=== PATIENT | female | born 1990 | race Caucasian/White ===

== ENCOUNTER 2019-05-14 14:00 | Inpatient (IN) | payer OTHER ==
[~2019-05-14] VITALS: Ht 165.1 cm; Wt 69.4 kg
[2019-06-04] MEDS ORDERED: PRENATAL CAPLE1 EAC1 PO (16:46)
== END 2019-06-07 13:27 | DRG 807 ==
LOC: O/R 14:00 → OB/GYN 06-04 14:00 → LDR 06-04 15:49 → OB/GYN 06-05 14:40
PROVIDERS: ADMIT Obstetrics & Gynecology Maternal & Fetal Medicine
PROC: 4A1HXCZ Monitoring of Products of Conception, Cardiac Rate, External Approach (ICD-10-PCS; 2019-06-04)
PROC: 10E0XZZ Delivery of Products of Conception, External Approach (ICD-10-PCS; principal; 2019-06-05)
PROC: 3E033VJ Introduction of Other Hormone into Peripheral Vein, Percutaneous Approach (ICD-10-PCS; 2019-06-05)
PROC: 0UQGXZZ Repair Vagina, External Approach (ICD-10-PCS; 2019-06-05)
DX: O71.4 Obstetric high vaginal laceration alone (principal); Z37.0 Single live birth; Z3A.40 40 weeks gestation of pregnancy

== ENCOUNTER 2019-05-30 13:26 | Outpatient (CLI) | payer OTHER | END 2019-05-30 14:25 | disposition home or self-care (01) | LOC: NST 13:26 | DX: Z34.83 Encounter for supervision of other normal pregnancy, third trimester (principal) ==

== ENCOUNTER 2019-06-03 09:01 | Outpatient (CLI) | payer OTHER ==
[2019-06-04] MEDS ORDERED: PRENATAL CAPLE1 EAC1 PO (16:46)
== END 2019-06-03 09:50 | disposition home or self-care (01) ==
LOC: NST 09:01
DX: Z34.83 Encounter for supervision of other normal pregnancy, third trimester (principal)

== ENCOUNTER 2022-06-10 14:30 | Inpatient (IN) | payer OTHER ==
[~2022-06-10] VITALS: Ht 162.6 cm; Wt 68.0 kg
[~2022-06-10 14:30] MED LIST: PRENATAL CAPLE1 EAC1 PO
== END 2022-07-01 12:34 | disposition home or self-care (01) | DRG 807 ==
LOC: OB/GYN 06-25 14:30 → LDR 06-29 05:47 → OB/GYN 06-29 05:47
PROVIDERS: ADMIT Obstetrics & Gynecology; ATTEND Obstetrics & Gynecology
PROC: 10E0XZZ Delivery of Products of Conception, External Approach (ICD-10-PCS; principal; 2022-06-29)
PROC: 0HQ9XZZ Repair Perineum Skin, External Approach (ICD-10-PCS; 2022-06-29)
PROC: 0UQG7ZZ Repair Vagina, Via Natural or Artificial Opening (ICD-10-PCS; 2022-06-29)
PROC: 4A1HXCZ Monitoring of Products of Conception, Cardiac Rate, External Approach (ICD-10-PCS; 2022-06-29)
DX: O70.0 First degree perineal laceration during delivery (principal); Z37.0 Single live birth; Z3A.40 40 weeks gestation of pregnancy; Z20.822 Contact with and (suspected) exposure to COVID-19

== ENCOUNTER 2022-06-21 10:27 | Outpatient (CLI) | payer OTHER | END 2022-06-21 11:13 | disposition home or self-care (01) | LOC: NST 10:27 | PROVIDERS: ATTEND Obstetrics & Gynecology Maternal & Fetal Medicine | DX: Z34.83 Encounter for supervision of other normal pregnancy, third trimester (principal) ==

== ENCOUNTER 2022-06-24 09:56 | Outpatient (CLI) | payer OTHER | END 2022-06-24 10:45 | disposition home or self-care (01) | LOC: NST 09:56 | PROVIDERS: ATTEND Obstetrics & Gynecology Gynecology | DX: Z34.83 Encounter for supervision of other normal pregnancy, third trimester (principal) ==

== ENCOUNTER 2025-06-26 13:15 | Inpatient (IN) | payer OTHER ==
[~2025-06-26] VITALS: Ht 165.1 cm; Wt 68.5 kg
[2025-07-04] VITALS (8 sets, daily range): BP systolic 103–136; BP diastolic 62–77; O2SAT 100
[2025-07-04] MEDS ORDERED: AMPICILLIN SODIUM 2,000 MG VIAL ONE (01:58)
[2025-07-04] MEDS ORDERED: MORPHINE SULFATE 4 MG/ML CARTRIDGE IV PRN (02:15)
[2025-07-04] MEDS ORDERED: RINGERS SOLUTION,LACTATED 1,000 ML IV SCH (02:15)
[2025-07-04] MEDS ORDERED: AMPICILLIN SODIUM 2,000 MG VIAL IV ONE (02:15)
[2025-07-04 03:15] LABS: BASO % 0.8 % (0.1-1.2); EOS # 0.04 (0.04-0.54); EOS % 0.5 % (0.7-7.0); LYMPH # 1.78 (1.18-3.74); LYMPH % 22.7 % (19.3-53.1); MEAN PLATELET VOLUME 10.70 fl (9.4-12.4); MONO # 0.45 (0.24-0.82); MONO % 5.7 % (4.7-12.5); NEUT # 5.49 (1.56-6.13); NEUT % 69.9 % (34.0-71.1); RED CELL DISTRIBUTION WIDTH 13.5 % (11.6-14.4)
[2025-07-04 03:44] LABS: INR 0.94
[2025-07-04] MEDS ORDERED: OXYTOCIN 20 UNITS/1000ML RL PIGGYBAG IV ONE (04:08)
[2025-07-04] MEDS ORDERED: ERYTHROMYCIN BASE OPHT 1GM EACH TUBE OP ONE ×2 (04:08→08:16)
[2025-07-04] MEDS ORDERED: CHLORHEXIDINE GLUCONATE 120 ML BOTTLE TOP ONE (04:09)
[2025-07-04] MEDS ORDERED: LIDOCAINE HCL 1% 10ML VIAL ONE (04:09)
[2025-07-04] MEDS ORDERED: AMPICILLIN SODIUM 1,000 MG VIAL IV SCH (08:00)
[2025-07-04] MEDS ORDERED: CHLORHEXIDINE GLUCONATE 120 ML BOTTLE TP SCH (08:45)
[2025-07-04] MEDS ORDERED: OXYTOCIN 1,000 ML IV SCH (08:45)
[2025-07-05] VITALS: BP 98/65
[2025-07-05 08:00] VITALS: BP 123/81
[2025-07-05 08:04] LABS: BASO % 0.7 % (0.1-1.2); EOS # 0.10 (0.04-0.54); EOS % 1.2 % (0.7-7.0); LYMPH # 2.19 (1.18-3.74); LYMPH % 25.3 % (19.3-53.1); MEAN PLATELET VOLUME 10.80 fl (9.4-12.4); MONO # 0.62 (0.24-0.82); MONO % 7.2 % (4.7-12.5); NEUT # 5.65 (1.56-6.13); NEUT % 65.3 % (34.0-71.1); RED CELL DISTRIBUTION WIDTH 14.1 % (11.6-14.4)
[2025-07-05 16:00] VITALS: BP 113/80
== END 2025-07-05 17:51 | disposition home or self-care (01) | DRG 807 ==
LOC: OB/GYN 07-04 02:02 → LDR 07-04 02:02 → OB/GYN 07-04 09:04
PROVIDERS: Obstetrics & Gynecology; ADMIT Obstetrics & Gynecology; ATTEND Obstetrics & Gynecology
PROC: 10E0XZZ Delivery of Products of Conception, External Approach (ICD-10-PCS; principal; 2025-07-04)
PROC: 0HQ9XZZ Repair Perineum Skin, External Approach (ICD-10-PCS; 2025-07-04)
PROC: 4A1HXCZ Monitoring of Products of Conception, Cardiac Rate, External Approach (ICD-10-PCS; 2025-07-04)
DX: O70.0 First degree perineal laceration during delivery (principal); Z37.0 Single live birth; Z3A.39 39 weeks gestation of pregnancy